=== PATIENT | male | born 1975 | race American Indian/Alaskan Native ===

== ENCOUNTER 2020-03-15 13:49 | Emergency (ER) | payer OTHER ==
[2020-03-15 14:26] VITALS: BP 125/83
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
--- NOTE | 2020-03-15 18:08 | XRay Report ---
CERVICAL SPINE 3 VIEWS INDICATION / CLINICAL INFORMATION: neck pain. COMPARISON: None available. FINDINGS: VERTEBRAE: No fracture. No significant malalignment. DISC SPACES:Moderate discogenic degenerative disease C5-7. Mild discogenic degenerative disease C3-5 PREVERTEBRAL SOFT TISSUES:No significant abnormality. ADDITIONAL FINDINGS: None. IMPRESSION: 1. No significant abnormality. Signer Name: Manuel Callahan MD Signed: 03/15/2020 6:04 PM Workstation Name: [id number]
[2020-03-15] MEDS ORDERED: IBUPROFEN 800 MG TAB PO ONE (19:16)
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
== END 2020-03-15 20:05 | disposition home or self-care (01) ==
LOC: ED 13:49
DX: S13.4XXA Sprain of ligaments of cervical spine, initial encounter (principal); Z79.899 Other long term (current) drug therapy; V49.49XA Driver injured in collision with other motor vehicles in traffic accident, initial encounter; Y93.89 Activity, other specified; Y92.488 Other paved roadways as the place of occurrence of the external cause; Y99.8 Other external cause status
CPT/HCPCS: 72040; 99283